=== PATIENT | male | born 1985 | race Caucasian/White ===

== ENCOUNTER 2020-12-22 05:36 | Outpatient (CLI) | payer OTHER ==
[~2020-12-22] VITALS: Ht 170 cm; Wt 95.5 kg
[2020-12-22] MEDS ORDERED: SERT-414 PO (09:38)
== END 2020-12-22 10:50 | disposition home or self-care (01) ==
LOC: PREOP 05:36
PROVIDERS: ATTEND Urology
DX: Z01.818 Encounter for other preprocedural examination (principal)

== ENCOUNTER 2020-12-28 08:26 | Day surgery (SDC) | payer OTHER ==
[~2020-12-28] VITALS: Ht 170 cm; Wt 95.5 kg
[2020-12-28] VITALS (10 sets, daily range): BP systolic 103–139; BP diastolic 67–106
[~2020-12-28 08:26] MED LIST: SERT-414 PO
[2020-12-28] MEDS ORDERED: cefTRIAXone 1,000 MG in WATER (STERILE) FOR INJECTION 10 ML IV ONE (08:30)
--- NOTE | 2020-12-28 08:34 | Progress Note-Pre Operative ---
Pre-Operative Progress Note H&P Reviewed The H&P was reviewed, patient examined and no changes noted. Date Seen by Provider: Dec 28, 2020 Time Seen by Provider: 08:34 Date H&P Reviewed: Dec 28, 2020 Time H&P Reviewed: 08:34 Pre-Operative Diagnosis: LT RENAL STONE BAL PATRICK MD Dec 28, 2020 08:34
--- NOTE | 2020-12-28 09:12 | Diagnostic Imaging Report ---
INDICATION: Renal stones, lithotripsy COMPARISON: None available TECHNIQUE: Two radiographs of the abdomen dated 12/28/2020 FINDINGS: A 1 cm ovoid calcification is noted overlying the central aspect of the left renal shadow. No suspicious calcifications overlying the right renal shadow. No suspicious calcifications overlying the expected course of bilateral ureters. Nonobstructive bowel gas pattern. No free air. No acute osseous abnormality. IMPRESSION: 1. A 1 cm calcification overlying the central left renal shadow is concerning for a renal calculus. No bowel obstruction or free air. Dictated by: Dictated on workstation # [id number]
--- NOTE | 2020-12-28 09:12 | Progress Note-Post Operative ---
Post-Operative Progess Note Surgeon (s)/Master In Chancery (s) Surgeon BAL PATRICK MD Master In Chancery: NONE Pre-Operative Diagnosis LT RENAL STONE Post-Operative Diagnosis SAME Procedure & Operative Findings Date of Procedure 12/28/20 Procedure Performed/Findings LT ESWL Anesthesia Type GENERAL Estimated Blood Loss Estimated blood loss (mL): NONE Specimens/Packing Specimens Removed NONE Packing: NONE BAL PATRICK MD Dec 28, 2020 09:12
--- NOTE | 2020-12-28 09:15 | Discharge Inst-Urology ---
Discharge Inst-Urology Reconcile Patient Problems Problems Reviewed?: Yes Final Diagnosis LT RENAL STONE Patient Instructions/Follow Up Plan/Assessment/Instructions Patient to make appointment with me in [facility] on Wednesday 01/17, KUB prior to it there KUB on way home Post ESWL instructions Increase oral fluids for 48 hours and then as needed. Diet and Activity as tolerated. If questions or concerns contact your physician Or seek help at emergency department. BAL PATRICK MD Dec 28, 2020 09:15
[2020-12-28] MEDS: LACTATED RINGERS 1,000 ML IV PRN ×2 (09:23→12:39)
[2020-12-28] MEDS ORDERED: proPOfol 200 MG/20 ML (DIPRIVAN) VIAL IV ONE ×2 (11:26→11:37)
[2020-12-28] MEDS ORDERED: LIDOCAINE PF 2% 5 ML (XYLOCAINE) VIAL ONE ×2 (11:26→11:55)
[2020-12-28] MEDS ORDERED: fentaNYL INJ 100 MCG/2 ML AMP ONE (11:26)
[2020-12-28] MEDS ORDERED: SEVOFLURANE (ULTANE) 15 ML INHAL SOLN ONE (11:26)
[2020-12-28] MEDS ORDERED: ONDANSETRON 4 MG/2 ML (SDV) Z0FRAN ONE (11:26)
[2020-12-28] MEDS ORDERED: MIDAZOLAM 2 MG/2 ML (VERSED) VIAL ONE (11:27)
[2020-12-28] MEDS ORDERED: FUROSEMIDE 40 MG/4 ML INJ (LASIX) ONE (11:30)
[2020-12-28] MEDS ORDERED: KETOROLAC 30 MG/ML VIAL ONE (11:30)
[2020-12-28] MEDS ORDERED: LACTATED RINGERS 1,000 ML IV ONE (12:37)
--- NOTE | 2020-12-28 12:55 | Anesthesia-General Post-Op ---
General Patient Condition Mental Status/LOC: Same as Preop Cardiovascular: Satisfactory Nausea/Vomiting: Absent Respiratory: Satisfactory Pain: Controlled Complications: Absent Post Op Complications Complications None Follow Up Care/Instructions Patient Instructions None needed. Anesthesia/Patient Condition Patient Condition Patient is doing well, no complaints, stable vital signs, no apparent adverse anesthesia problems. No complications reported per nursing. RADHA CHAVIRA CRNA Dec 28, 2020 12:55
[2020-12-28] MEDS ORDERED: NITR-65 PO (13:48)
[2020-12-28] MEDS ORDERED: TMSL.4C PO (13:48)
[2020-12-28] MEDS ORDERED: KETO10TA PO (13:48)
--- NOTE | 2020-12-28 14:03 | Diagnostic Imaging Report ---
Indication: Kidney stone. Comparison: 12/28/2020 at 8:54 a.m. Single view of the abdomen demonstrates unchanged calcification of the left kidney. There is no unexpected radiopaque foreign body. Bowel gas pattern is normal. Impression: Unchanged left renal calculus. Dictated by: Dictated on workstation # [id number]
--- NOTE | 2020-12-28 19:25 | OPERATIVE REPORT ---
DATE OF SERVICE: 12/28/2020 PREOPERATIVE DIAGNOSIS: Left renal stone. POSTOPERATIVE DIAGNOSIS: Left renal stone. OPERATION PERFORMED: Left ESWL. SURGEON: Hunter Patrick MD. ANESTHESIA: General. COMPLICATIONS: None. DESCRIPTION OF PROCEDURE: Under satisfactory general anesthesia, the patient in supine position on the ESWL table, the left renal stone was localized. Shocks were delivered at kV of 6, a total of 3000 shocks completely fragmented the stone. The patient received 30 mg of Toradol and 40 mg of Lasix IV at the end of the procedure. He tolerated the procedure and anesthesia well and was sent to recovery room in a stable condition. Job ID: [id number] DocumentID: [id number] Dictated Date: 12/28/2020 12:11:18 Hamper Maker Date: 12/28/2020 19:24:39 Dictated By: HUNTER PATRICK MD
== END 2020-12-28 14:04 | disposition home or self-care (01) ==
LOC: SDC 08:26
PROVIDERS: ATTEND Urology
DX: N20.0 Calculus of kidney (principal); F32.9 Major depressive disorder, single episode, unspecified; F41.9 Anxiety disorder, unspecified; F43.10 Post-traumatic stress disorder, unspecified; E66.9 Obesity, unspecified; Z68.33 Body mass index [BMI] 33.0-33.9, adult; Z87.891 Personal history of nicotine dependence; Z79.899 Other long term (current) drug therapy; Z11.2 Encounter for screening for other bacterial diseases
CPT/HCPCS: 74018; 87081

== ENCOUNTER 2021-09-14 05:39 | Outpatient (CLI) | payer OTHER ==
[~2021-09-14] VITALS: Ht 170.2 cm; Wt 93.2 kg
[~2021-09-14 05:39] MED LIST changes: +KETO10TA PO; +NITR-65 PO; +TMSL.4C PO
== END 2021-09-14 12:54 | disposition home or self-care (01) ==
LOC: PREOP 05:39
PROVIDERS: ATTEND Urology
DX: Z01.818 Encounter for other preprocedural examination (principal)

== ENCOUNTER 2021-09-20 06:08 | Day surgery (SDC) | payer OTHER ==
[2021-09-20] VITALS (10 sets, daily range): BP systolic 101–144; BP diastolic 61–92
[~2021-09-20] VITALS: Ht 170.2 cm; Wt 93.2 kg
[2021-09-20] MEDS ORDERED: LACTATED RINGERS 1,000 ML IV PRN (06:30)
[2021-09-20] MEDS ORDERED: cefTRIAXone 1 GM PRE-MIX 50 ML IV ONE (06:30)
[2021-09-20] MEDS ORDERED: fentaNYL INJ 100 MCG/2 ML AMP ONE (06:50)
[2021-09-20] MEDS ORDERED: ONDANSETRON 4 MG/2 ML (SDV) Z0FRAN ONE (06:50)
[2021-09-20] MEDS ORDERED: proPOfol 200 MG/20 ML (DIPRIVAN) VIAL IV ONE (06:50)
[2021-09-20] MEDS ORDERED: SEVOFLURANE (ULTANE) 15 ML INHAL SOLN ONE ×3 (06:50→07:46)
[2021-09-20] MEDS ORDERED: LIDOCAINE PF 2% 5 ML (XYLOCAINE) VIAL ONE (06:50)
[2021-09-20] MEDS ORDERED: MIDAZOLAM 2 MG/2 ML (VERSED) VIAL ONE (06:51)
--- NOTE | 2021-09-20 07:04 | Progress Note-Pre Operative ---
Pre-Operative Progress Note H&P Reviewed The H&P was reviewed, patient examined and no changes noted. Date Seen by Provider: September 20, 2021 Time Seen by Provider: 07:03 Date H&P Reviewed: September 20, 2021 Time H&P Reviewed: 07:03 Pre-Operative Diagnosis: LT RENAL STONE BAL PATRICK MD September 20, 2021 07:04
--- NOTE | 2021-09-20 07:21 | Progress Note-Post Operative ---
Post-Operative Progess Note Surgeon (s)/Internet Sales Associate (s) Surgeon BAL PATRICK MD Internet Sales Associate: NONE Pre-Operative Diagnosis LT RENAL STONE Post-Operative Diagnosis SAME Procedure & Operative Findings Date of Procedure 09/20/21 Procedure Performed/Findings LT ESWL Anesthesia Type GENERAL Estimated Blood Loss Estimated blood loss (mL): NONE Specimens/Packing Specimens Removed NONE Packing: NONE BAL PATRICK MD September 20, 2021 07:21
--- NOTE | 2021-09-20 07:22 | Discharge Inst-Urology ---
Discharge Inst-Urology Reconcile Patient Problems Problems Reviewed?: Yes Final Diagnosis LT RENAL STONE Patient Instructions/Follow Up Plan/Assessment/Instructions Please make appointment to been seen in office in 2 weeks. KUB prior to it KUB on way home Post ESWL instructions Increase oral fluids for 48 hours and then as needed. Diet and Activity as tolerated. If questions or concerns contact your physician Or seek help at emergency department. BAL PATRICK MD September 20, 2021 07:22
--- NOTE | 2021-09-20 07:29 | Diagnostic Imaging Report ---
INDICATION: Nephrolithiasis, extra corporal shock wave lithotripsy. TECHNIQUE: Single view of the abdomen 6:30 AM CORRELATION STUDY: 12/28/2020 FINDINGS: 13 mm calcification projects centrally over the left kidney, generally stable. No definitive calcification of the right renal silhouette and/or along the expected course of either ureter. Bowel gas pattern demonstrates mild stool retention. No obstruction. IMPRESSION: 1. Unchanged left renal calculus. Dictated by: Dictated on workstation # [id number]
[2021-09-20] MEDS ORDERED: FUROSEMIDE 40 MG/4 ML INJ (LASIX) ONE (07:36)
[2021-09-20] MEDS ORDERED: KETOROLAC 30 MG/ML VIAL ONE (07:36)
--- NOTE | 2021-09-20 08:06 | Anesthesia-General Post-Op ---
General Patient Condition Mental Status/LOC: Same as Preop Cardiovascular: Satisfactory Nausea/Vomiting: Absent Respiratory: Satisfactory Pain: Controlled Complications: Absent Post Op Complications Complications None Follow Up Care/Instructions Patient Instructions None needed. Anesthesia/Patient Condition Patient Condition Patient is doing well, no complaints, stable vital signs, no apparent adverse anesthesia problems. No complications reported per nursing. [place] [facility] [place]: Yes RUSTAM MCLAIN CRNA September 20, 2021 08:06
[2021-09-20] MEDS ORDERED: TMSL.4C PO ×2 (08:15)
[2021-09-20] MEDS ORDERED: KETO10TA PO ×2 (08:15)
[2021-09-20] MEDS ORDERED: HYDROmorphone 2 MG/ML VIAL (DILAUDID) IV ONE (08:15)
[2021-09-20] MEDS ORDERED: ONDANSETRON 4 MG/2 ML (SDV) Z0FRAN IVP PRN (08:15)
[2021-09-20] MEDS ORDERED: NITR-65 PO ×2 (08:15)
--- NOTE | 2021-09-20 10:01 | Diagnostic Imaging Report ---
Indication: Post ESWL Compared with study earlier today. Findings: a 13 mm calculus projects over the left renal pelvis unchanged in appearance from earlier today. No stone fragments along the expected course of the left ureter. The bowel gas pattern nonobstructive and unremarkable. Impression: Unchanged dominant calculus projects at the level of the left renal pelvis. No radiographically apparent fragmentation or change. Dictated by: Dictated on workstation # [id number]
--- NOTE | 2021-09-20 12:02 | OPERATIVE REPORT ---
DATE OF SERVICE: 09/20/2021 PREOPERATIVE DIAGNOSIS: Left renal stone. POSTOPERATIVE DIAGNOSIS: Left renal stone. OPERATION PERFORMED: Left ESWL. SURGEON: Hunter Patrick MD. ANESTHESIA: General. COMPLICATIONS: None. DESCRIPTION OF PROCEDURE: Under satisfactory general anesthesia, the patient in supine position on the ESWL table, the left renal stone was localized. Shocks were delivered at kV of 6 gradually increased for a total of 2500 shocks to completely fragment the stone, which was hardly visualized. The patient received 40 mg of Lasix and 30 mg of Toradol IV at the end of the procedure. He tolerated the procedure and anesthesia well and was sent to recovery room in stable condition. Job ID: [id number] DocumentID: [id number] Dictated Date: 09/20/2021 07:44:19 Substation Supervisor Date: 09/20/2021 12:02:00 Dictated By: HUNTER PATRICK MD
== END 2021-09-20 09:50 | disposition home or self-care (01) ==
LOC: SDC 06:08
PROVIDERS: ATTEND Urology
DX: N20.0 Calculus of kidney (principal); Z87.891 Personal history of nicotine dependence
CPT/HCPCS: 74018; 87081

== ENCOUNTER → 2021-10-05 | Outpatient (CLI) | payer OTHER ==
--- NOTE | 2021-10-05 17:50 | Diagnostic Imaging Report ---
ABDOMEN/KUB 1VIEW INDICATION: Left renal stone status post lithotripsy COMPARISON: 09/20/2021 TECHNIQUE: AP view of the abdomen FINDINGS: The 12 mm calculus previously noted overlying the left renal fossa is no longer seen. There are no calculi along the expected course of the ureters. Nonobstructive bowel gas pattern. Stable regional skeleton. IMPRESSION: Left-sided renal stone has resolved post lithotripsy. Dictated by: Dictated on workstation # [id number]
== END ==
LOC: RAD 17:17
PROVIDERS: ATTEND Urology
DX: Z87.442 Personal history of urinary calculi (principal); Z98.890 Other specified postprocedural states
CPT/HCPCS: 74018